=== PATIENT | male | born 1955 | race Caucasian/White ===

== ENCOUNTER 2020-07-02 06:24 | Day surgery (SDC) | payer MEDICARE, BC ==
[2020-07-02] MEDS ORDERED: Lactated Ringers 1,000 ML IV SCH (07:30)
--- NOTE | 2020-07-02 11:56 | PROC ---
DATE OF PROCEDURE: 07/02/2020 SURGEON: Mohamud Mcgee MD PROCEDURE: Colonoscopy. PROCEDURE IN DETAIL: The risks and benefits were explained to the patient and was taken to the OR. Anesthesia was given by nurse account management specialist. The Olympus 180L scope was used. With a gloved finger, the rectum was examined. The prostate was a grade 3/6 symmetric, round, soft. No obvious pathology noted. The tube was placed into the rectum and advanced under direct vision. We did get to the cecum with minimal difficulty. Picture was taken of the cecum. Upon slow retraction of the tube, no lesions or ulceration, no abnormality throughout the entire colon. The tube was removed. The patient tolerated the procedure well. PREOPERATIVE DIAGNOSIS: Screening colonoscopy. POSTOPERATIVE DIAGNOSIS: Normal colon from cecum to rectum. PLAN: Routine screening should be done. Mohamud Mcgee MD /[id number]
--- NOTE | 2020-07-03 07:11 | PROC ---
DATE OF PROCEDURE: 07/02/2020 SURGEON: Mohamud Mcgee MD INDICATIONS: Gurpreet is a 64-year-old male, comes in for an esophagogastroduodenoscopy. The risks and benefits were explained to the patient and was taken to the OR. PROCEDURE IN DETAIL: Anesthesia was given by nurse occupational therapy specialist. During the procedure, we used 2 mg of Versed, 100 mcg of fentanyl, and 230 mg of propofol. The Olympus 180 scope was used, was placed into the pharynx into the esophagus without difficulty and advanced under direct vision. We did get into the stomach and the pylorus was identified and advanced into the 1st and 2nd part of the duodenum. Upon retraction of the tube, there was noted very minimal duodenal erythema. Came back into the stomach, in the antral area noted small ulcerations, all superficial with erythema that is evident. No deep ulcerations were noted. The greater and lesser curvatures were unremarkable. The fundus was unremarkable. The GE junction was identified. There was a significant amount of erythema noted in the distal esophagus. No active ulcerations were noted. The remainder of the esophagus was unremarkable. The vocal cords moved symmetrically. No obvious pathology noted. The tube was removed. The patient tolerated the procedure well. PREOPERATIVE DIAGNOSIS: Esophageal reflux. POSTOPERATIVE DIAGNOSES: 1. Mucosal erythema in the antrum with small superficial ulcerations. 2. Distal esophagitis. PLAN: He needs to be put on a proton pump inhibitor twice a day and then should recheck again in 6 to 8 weeks unless he is totally asymptomatic. Mohamud Mcgee MD /[id number]
== END 2020-07-02 09:09 | disposition home or self-care (01) ==
LOC: JP.SDS 06:24
PROVIDERS: ATTEND Internal Medicine
DX: Z12.11 Encounter for screening for malignant neoplasm of colon (principal); K25.9 Gastric ulcer, unspecified as acute or chronic, without hemorrhage or perforation; K21.00 Gastro-esophageal reflux disease with esophagitis, without bleeding
CPT/HCPCS: 43235; G0121; J7120